=== PATIENT | female | born 1945 | race Caucasian/White ===

== ENCOUNTER → 2017-02-22 | Outpatient (CLI) | payer MEDICARE ==
[2017-02-22 15:27] LABS: ALANINE AMINOTRANSFERASE 33 U/L (9-52); ALBUMIN 4.3 g/dL (3.5-5.0); ALKALINE PHOSPHATASE 80 U/L (38-126); ANION GAP 12 (5-19); ASPARTATE AMINO TRANSFERASE 24 U/L (14-36); BILIRUBIN,DIRECT 0.3 mg/dL (0.0-0.4); BILIRUBIN,TOTAL 0.5 mg/dL (0.2-1.3); BLOOD UREA NITROGEN 16 mg/dL (7-20); CALCIUM 10.8 mg/dL (8.4-10.2); CARBON DIOXIDE 26 mmol/L (22-30); CHLORIDE 106 mmol/L (98-107); CREATININE RESULT 0.82 mg/dL (0.52-1.25); GLUCOSE 85 mg/dL (75-110); POTASSIUM 4.8 mmol/L (3.6-5.0); TOTAL PROTEIN 6.7 g/dL (6.3-8.2)
== END ==
LOC: OD 14:07
PROVIDERS: ATTEND Internal Medicine Medical Oncology
DX: M81.0 Age-related osteoporosis without current pathological fracture (principal)
CPT/HCPCS: 36415; 80053

== ENCOUNTER 2017-06-07 08:37 | Day surgery (SDC) | payer MEDICARE ==
[2017-06-07] MEDS ORDERED: LIDOCAINE 1% INJ-PF (10 MG/ML) 30 ML SDV ONE ×2 (09:10→09:21)
[2017-06-07] MEDS ORDERED: BUPIVACAINE HCL 0.5 % INJ/PF 30 ML SDV ONE (09:21)
[2017-06-07 10:14] LABS: INTERNATIONAL RATION (INR) 0.94; PARTIAL THROMBOPLASTIN TIME 29.8 SEC (23.5-35.8); PROTHROMBIN TIME 13.3 SEC (11.4-15.4)
[2017-06-07] MEDS ORDERED: FENTANYL CITRATE INJ/PF 100 MCG/2 ML AMPUL ONE ×2 (11:41→12:00)
[2017-06-07 15:23] VITALS: BP 118/57
--- NOTE | 2017-06-07 15:48 | RADIOLOGY REPORT (SQ) ---
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 FLUOROSCOPY TIME: 1 minutes 1 second TECHNIQUE: Fluoroscopic guided lumbar myelogram. LIMITATIONS: None. PROCEDURE: After written consent and assessment were obtained, the patient was brought into the fluo roscopy room and placed prone on the table. The patient's lower back was prepped in a sterile fashio n and an entry site was selected under live fluoroscopic guidance. The entry site was anesthetized wi th 4 mL of 1% lidocaine. The spinal needle was advanced through the skin and into the thecal sac at t he right paracentral L2-3 level. Contrast was injected into the thecal sac. Following the procedure the needle was removed and a sterile bandage was placed of the site. At my direction, with continuous physiologic monitoring of the patient by radiology nursing, pain con trol during the procedure was achieved 100 mcg of IV fentanyl in divided doses. No complications pos t IV pain management. CONTRAST: 12 mL Isovue M 200. IMAGES ACQUIRED: Prone, semi-erect, upright PA and oblique images of lumbar spine. Prone cross-table lateral lumbar spine film. Central canal stenosis is present at the L4-5 level with asymmetric leftward lateral impression on th e thecal sac near the takeoff of the right L4 nerve root from the thecal sac. TECHNIQUE: After performing lumbar myelogram, axial images were acquired through the lumbar spine wi thout intravenous contrast. Images reviewed with lung, soft tissue and bone windows. Reconstructed coronal and sagittal MPR images reviewed. All images stored on PACS. All CT scanners at this facility use dose modulation, iterative reconstruction, and/or weight based d osing when appropriate to reduce radiation dose to as low as reasonably achievable (ALARA). [facility]: Dose Right [facility]: CareDose [facility]: Dose Right [facility]: Teradose 4D [facility]: [employer] FINDINGS: SEGMENTATION: Normal. No transitional anatomy. ALIGNMENT: Mild convex leftward lumbar curvature. VERTEBRAL BODIES: Chronic appearing 50% anterior wedge compression of T12, with vertebral body endpla te sclerosis and anterior osteophyte formation. HARDWARE: None in the spine. DISCS: T11-12: Mild diffuse posterior disc bulge and bony spurring is present with moderate right facet hyp ertrophy. These findings combine to cause moderate right foraminal narrowing. No left foraminal kelly rowing. Borderline central canal stenosis. T12-L1: Moderate diffuse posterior disc bulge is present. Mild bilateral facet and ligament hypertr ophy. Mild central canal narrowing. Moderate bilateral foraminal narrowing is present. L1-L2: Mild central canal stenosis results from broad diffuse posterior disc bulging and moderate lakeshia ateral facet and ligament hypertrophy. Moderate bilateral foraminal narrowing is present. L2-L3: Mild central canal stenosis results from broad diffuse posterior disc bulge and moderate bilat eral facet and ligament hypertrophy. No significant foraminal narrowing. L3-L4: Borderline central canal narrowing results from broad diffuse disc bulge and moderate bilatera l facet and ligament hypertrophy. No significant foraminal stenosis. L4-L5: In the left lateral recess, a well-circumscribed low-density soft tissue mass flattens the lef tward thecal sac at the takeoff of the proximal left L4 nerve root. This may represent a facet synov ial cyst emanating off the anterior edge of the left L4-5 facet. There is bony remodeling along the dorsal aspect of the L4 vertebral body on axial image 65. Alternatively, this could be a large extru ded left paracentral disc herniation with superior migration. These changes are best shown on axial image 61-69 and coronal images 25 through 31. The left proximal L5 nerve root is not impinged by thi s. There is high-grade left proximal L4-5 foraminal narrowing. There is moderate central canal stenosis with about 50% narrowing of the thecal sac transversely. No right foraminal stenosis. L5-S1: Advanced bilateral facet arthropathy is present. Minimal posterior disc bulging. No signific ant central or foraminal encroachment. SOFT TISSUES: Anastomotic jerry at the rectosigmoid from partial sigmoid colectomy OTHER: No other significant finding. IMPRESSION: 2 cm soft tissue filling defect in the leftward lateral spinal canal at the L4-5 level. This either represents a large left paracentral disc herniation with superior migration of the extru ded fragment, or represents a large synovial cyst protruding off the superior aspect of the L4-5 face t. In either case, this causes high-grade left foraminal narrowing and impingement on the proximal l eft L4 nerve root as it exits the thecal sac COMMENT: Patient medication list reviewed: Yes- Quality ID# [id number]:Eligible professional attests to doc umenting in the medical record they obtained, updated, or reviewed the patient's current medications. TECHNICAL DOCUMENTATION: JOB ID: [id number] Quality ID # 436: Final reports with documentation of one or more dose reduction techniques (e.g., Au tomated exposure control, adjustment of the mA and/or kV according to patient size, use of iterative reconstruction technique) 2010 [employer]- All Rights Reserved Reading location - IP/workstation name: [email or web address]
--- NOTE | 2017-06-07 15:48 | RADIOLOGY REPORT (SQ) ---
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 FLUOROSCOPY TIME: 1 minutes 1 second TECHNIQUE: Fluoroscopic guided lumbar myelogram. LIMITATIONS: None. PROCEDURE: After written consent and assessment were obtained, the patient was brought into the fluo roscopy room and placed prone on the table. The patient's lower back was prepped in a sterile fashio n and an entry site was selected under live fluoroscopic guidance. The entry site was anesthetized wi th 4 mL of 1% lidocaine. The spinal needle was advanced through the skin and into the thecal sac at t he right paracentral L2-3 level. Contrast was injected into the thecal sac. Following the procedure the needle was removed and a sterile bandage was placed of the site. At my direction, with continuous physiologic monitoring of the patient by radiology nursing, pain con trol during the procedure was achieved 100 mcg of IV fentanyl in divided doses. No complications pos t IV pain management. CONTRAST: 12 mL Isovue M 200. IMAGES ACQUIRED: Prone, semi-erect, upright PA and oblique images of lumbar spine. Prone cross-table lateral lumbar spine film. Central canal stenosis is present at the L4-5 level with asymmetric leftward lateral impression on th e thecal sac near the takeoff of the right L4 nerve root from the thecal sac. TECHNIQUE: After performing lumbar myelogram, axial images were acquired through the lumbar spine wi thout intravenous contrast. Images reviewed with lung, soft tissue and bone windows. Reconstructed coronal and sagittal MPR images reviewed. All images stored on PACS. All CT scanners at this facility use dose modulation, iterative reconstruction, and/or weight based d osing when appropriate to reduce radiation dose to as low as reasonably achievable (ALARA). [facility]: Dose Right [facility]: CareDose [facility]: Dose Right [facility]: Teradose 4D [facility]: [employer] FINDINGS: SEGMENTATION: Normal. No transitional anatomy. ALIGNMENT: Mild convex leftward lumbar curvature. VERTEBRAL BODIES: Chronic appearing 50% anterior wedge compression of T12, with vertebral body endpla te sclerosis and anterior osteophyte formation. HARDWARE: None in the spine. DISCS: T11-12: Mild diffuse posterior disc bulge and bony spurring is present with moderate right facet hyp ertrophy. These findings combine to cause moderate right foraminal narrowing. No left foraminal kelly rowing. Borderline central canal stenosis. T12-L1: Moderate diffuse posterior disc bulge is present. Mild bilateral facet and ligament hypertr ophy. Mild central canal narrowing. Moderate bilateral foraminal narrowing is present. L1-L2: Mild central canal stenosis results from broad diffuse posterior disc bulging and moderate lakeshia ateral facet and ligament hypertrophy. Moderate bilateral foraminal narrowing is present. L2-L3: Mild central canal stenosis results from broad diffuse posterior disc bulge and moderate bilat eral facet and ligament hypertrophy. No significant foraminal narrowing. L3-L4: Borderline central canal narrowing results from broad diffuse disc bulge and moderate bilatera l facet and ligament hypertrophy. No significant foraminal stenosis. L4-L5: In the left lateral recess, a well-circumscribed low-density soft tissue mass flattens the lef tward thecal sac at the takeoff of the proximal left L4 nerve root. This may represent a facet synov ial cyst emanating off the anterior edge of the left L4-5 facet. There is bony remodeling along the dorsal aspect of the L4 vertebral body on axial image 65. Alternatively, this could be a large extru ded left paracentral disc herniation with superior migration. These changes are best shown on axial image 61-69 and coronal images 25 through 31. The left proximal L5 nerve root is not impinged by thi s. There is high-grade left proximal L4-5 foraminal narrowing. There is moderate central canal stenosis with about 50% narrowing of the thecal sac transversely. No right foraminal stenosis. L5-S1: Advanced bilateral facet arthropathy is present. Minimal posterior disc bulging. No signific ant central or foraminal encroachment. SOFT TISSUES: Anastomotic jerry at the rectosigmoid from partial sigmoid colectomy OTHER: No other significant finding. IMPRESSION: 2 cm soft tissue filling defect in the leftward lateral spinal canal at the L4-5 level. This either represents a large left paracentral disc herniation with superior migration of the extru ded fragment, or represents a large synovial cyst protruding off the superior aspect of the L4-5 face t. In either case, this causes high-grade left foraminal narrowing and impingement on the proximal l eft L4 nerve root as it exits the thecal sac COMMENT: Patient medication list reviewed: Yes- Quality ID# [id number]:Eligible professional attests to doc umenting in the medical record they obtained, updated, or reviewed the patient's current medications. TECHNICAL DOCUMENTATION: JOB ID: [id number] Quality ID # 436: Final reports with documentation of one or more dose reduction techniques (e.g., Au tomated exposure control, adjustment of the mA and/or kV according to patient size, use of iterative reconstruction technique) 2010 [employer]- All Rights Reserved Reading location - IP/workstation name: [email or web address]
== END 2017-06-07 15:10 | disposition home or self-care (01) ==
LOC: RAD 08:37
PROVIDERS: ATTEND Family Medicine
DX: M25.552 Pain in left hip (principal); M54.9 Dorsalgia, unspecified; Z79.01 Long term (current) use of anticoagulants; Z79.899 Other long term (current) drug therapy; Z88.5 Allergy status to narcotic agent
CPT/HCPCS: 36415; 82947; 85610; 85730; 72265; 72132; J3010; J3490

== ENCOUNTER 2017-07-03 15:09 | Day surgery (SDC) | payer MEDICARE ==
[2017-07-03] MEDS: MIDAZOLAM 2 MG/2 ML INJ ONE ×2 (16:55→16:59)
--- NOTE | 2017-07-03 17:10 | Operative Report ---
Operative Report DATE OF SURGERY: 07/03/17 Operative Report: Pre-op diagnosis: Dysphagia Post-op diagnosis: Antral gastritis Surgery: Esophagogastroduodenoscopy with biopsy Medications: Versed 3mg Fentanyl 100 mcg IV push Tissue removed: Antral biopsy for pathology Procedure: After informed consent obtained from patient, the throat was sprayed with Hurricane and conscious sedation was achieved. The upper endoscope was inserted into the esophagus under direct vision and advanced into the stomach. The duodenum was entered and examined to the second part. Endoscope was then slowly pulled out of the patient as the mucosa was examined into details. Patient tolerated procedure well. Findings Esophagus: Normal Z-line at: 34 cm Antrum: Mild erythema Body: Normal Fundus: 6 cm hiatal hernia with the top of the gastric fold at 40 cm Duodenum first part: Normal Duodenum second part: Normal Plan: Await pathology. Continue PPI OPERATION: .
[2017-07-03] MEDS ORDERED: EPINEPHRINE INJ 1 MG/10 ML DISP.SYRIN ONE (17:16)
[2017-07-03] MEDS ORDERED: NALOXONE HCL INJ/PF 0.4 MG/1 ML SDV ONE (17:16)
[2017-07-03] MEDS ORDERED: GLUCAGON,HUMAN RECOMB 1 MG INJ ONE (17:16)
[2017-07-03] MEDS ORDERED: FENTANYL CITRATE INJ/PF 100 MCG/2 ML AMPUL ONE (17:16)
[2017-07-03] MEDS ORDERED: FLUMAZENIL INJ 0.5 MG/5 ML VIAL ONE (17:16)
[2017-07-03 18:12] VITALS: BP 143/61
== END 2017-07-03 18:15 | disposition home or self-care (01) ==
LOC: END 15:09
PROVIDERS: ATTEND Internal Medicine Gastroenterology
PROC: 0DB68ZX Excision of Stomach, Via Natural or Artificial Opening Endoscopic, Diagnostic (ICD-10-PCS; principal; 2017-07-03 15:30)
DX: K29.50 Unspecified chronic gastritis without bleeding (principal); K44.9 Diaphragmatic hernia without obstruction or gangrene; E11.9 Type 2 diabetes mellitus without complications; K21.9 Gastro-esophageal reflux disease without esophagitis; M19.90 Unspecified osteoarthritis, unspecified site; E78.00 Pure hypercholesterolemia, unspecified; I11.0 Hypertensive heart disease with heart failure; I50.9 Heart failure, unspecified; Z96.651 Presence of right artificial knee joint; K58.9 Irritable bowel syndrome, unspecified; Z87.11 Personal history of peptic ulcer disease; Z85.3 Personal history of malignant neoplasm of breast; Z86.718 Personal history of other venous thrombosis and embolism; Z85.820 Personal history of malignant melanoma of skin; Z95.810 Presence of automatic (implantable) cardiac defibrillator; Z88.5 Allergy status to narcotic agent; Z79.899 Other long term (current) drug therapy; Z79.84 Long term (current) use of oral hypoglycemic drugs; Z79.51 Long term (current) use of inhaled steroids; Z79.82 Long term (current) use of aspirin
CPT/HCPCS: 43239; 82962; 88342 ×2; 88305 ×2; J2250; J3010; J0171; J1610; J2310; J3490

== ENCOUNTER → 2017-08-21 | Outpatient (CLI) | payer MEDICARE ==
--- NOTE | 2017-08-21 14:55 | RADIOLOGY REPORT (SQ) ---
EXAM DESCRIPTION: U/S EXTREMITY NONVASCULAR LTD COMPLETED DATE/TIME: 08/21/2017 2:29 pm REASON FOR STUDY: R22.32 LOCALIZED SWELLING, MASS AND LUMP, LEFT UPPER LIMB R22.32 LOCALIZED SWELLI NG, MASS AND LUMP, LEFT UPPER LIMB COMPARISON: None. TECHNIQUE: Dynamic and static grayscale images acquired of the localized site of clinical concern an d recorded on PACS. Additional selected color Doppler and spectral images recorded. SITE OF CONCERN: Left forearm. LIMITATIONS: None. FINDINGS: SKIN AND SUBCUTANEOUS TISSUES: No masses. No fluid collections. No edema. No foreign vero s. DEEP SOFT TISSUES/MUSCLES: No masses. No fluid collections. No edema. OTHER: No other significant finding. IMPRESSION: NO SOFT TISSUE MASS, FLUID COLLECTION, OR FOREIGN BODY. TECHNICAL DOCUMENTATION: JOB ID: [id number] [employer]- All Rights Reserved Reading location - IP/workstation name: [email or web address]
== END ==
LOC: RAD 13:35
PROVIDERS: ATTEND Orthopaedic Surgery
DX: R22.32 Localized swelling, mass and lump, left upper limb (principal)
CPT/HCPCS: 76882

== ENCOUNTER → 2017-08-21 | Outpatient (CLI) | payer MEDICARE ==
[2017-08-21 15:33] LABS: ABSOLUTE BASOPHILS # (AUTO) 0.1 10^3/uL (0.0-0.2); ABSOLUTE EOSINOPHILS # (AUTO) 0.1 10^3/uL (0.0-0.6); ABSOLUTE LYMPHOCYTES (AUTO) 1.4 10^3/uL (0.5-4.7); ABSOLUTE MONOCYTES (AUTO) 0.3 10^3/uL (0.1-1.4); ABSOLUTE NEUT (AUTO) 4.4 10^3/uL (1.7-8.2); EOSINOPHILS % (AUTO) 1.4 % (0-6); HEMATOCRIT 38.7 % (36.0-47.0); HEMOGLOBIN 12.7 g/dL (12.0-15.5); LYMPHOCYTES % (AUTO) 22.6 % (13-45); MEAN CORPUSCULAR HEMOGLOBIN 29.9 pg (27.0-33.4); MEAN CORPUSCULAR HGB CONC 32.8 g/dL (32.0-36.0); MEAN CORPUSCULAR VOLUME 91 fl (80-97); MONOCYTES % (AUTO) 5.2 % (3-13); PLATELET COUNT 229 10^3/uL (150-450); RED BLOOD COUNT 4.25 10^6/uL (3.72-5.28); RED CELL DISTRIBUTION WIDTH 16.3 % (11.5-14.0); SEGMENTED NEUTROPHILS % (AUTO) 69.8 % (42-78); TOTAL CELLS COUNTED % (AUTO) 100 %; WHITE BLOOD COUNT 6.3 10^3/uL (4.0-10.5)
[2017-08-21 15:56] LABS: ALANINE AMINOTRANSFERASE 32 U/L (9-52); ALBUMIN 3.9 g/dL (3.5-5.0); ALKALINE PHOSPHATASE 65 U/L (38-126); ANION GAP 8 (5-19); ASPARTATE AMINO TRANSFERASE 25 U/L (14-36); BILIRUBIN,DIRECT 0.2 mg/dL (0.0-0.4); BILIRUBIN,TOTAL 0.2 mg/dL (0.2-1.3); BLOOD UREA NITROGEN 23 mg/dL (7-20); CALCIUM 11.2 mg/dL (8.4-10.2); CARBON DIOXIDE 29 mmol/L (22-30); CHLORIDE 107 mmol/L (98-107); GLUCOSE 115 mg/dL (75-110); POTASSIUM 4.4 mmol/L (3.6-5.0); TOTAL PROTEIN 6.3 g/dL (6.3-8.2)
[2017-08-21 16:26] LABS: CARCINOEMBRYONIC ANTIGEN 1.5 ng/mL (<3.0)
== END ==
LOC: OD 14:23
PROVIDERS: ATTEND Internal Medicine Medical Oncology
DX: C50.812 Malignant neoplasm of overlapping sites of left female breast (principal)
CPT/HCPCS: 36415; 80053; 82378; 85025; 86300

== ENCOUNTER → 2018-02-20 | Outpatient (CLI) | payer MEDICARE ==
[2018-02-20 17:57] LABS: ABSOLUTE LYMPHOCYTES (AUTO) 1.3 10^3/uL (0.5-4.7); ABSOLUTE MONOCYTES (AUTO) 0.4 10^3/uL (0.1-1.4); ABSOLUTE NEUT (AUTO) 5.6 10^3/uL (1.7-8.2); BASOPHILS % (AUTO) 0.7 % (0-2); EOSINOPHILS % (AUTO) 0.5 % (0-6); HEMATOCRIT 37.9 % (36.0-47.0); HEMOGLOBIN 12.4 g/dL (12.0-15.5); LYMPHOCYTES % (AUTO) 17.9 % (13-45); MEAN CORPUSCULAR HEMOGLOBIN 29.8 pg (27.0-33.4); MEAN CORPUSCULAR HGB CONC 32.8 g/dL (32.0-36.0); MEAN CORPUSCULAR VOLUME 91 fl (80-97); PLATELET COUNT 255 10^3/uL (150-450); RED BLOOD COUNT 4.17 10^6/uL (3.72-5.28); RED CELL DISTRIBUTION WIDTH 20.1 % (11.5-14.0); SEGMENTED NEUTROPHILS % (AUTO) 74.9 % (42-78); TOTAL CELLS COUNTED % (AUTO) 100 %; WHITE BLOOD COUNT 7.4 10^3/uL (4.0-10.5)
[2018-02-20 18:16] LABS: ALANINE AMINOTRANSFERASE 28 U/L (9-52); ALBUMIN 4.3 g/dL (3.5-5.0); ALKALINE PHOSPHATASE 85 U/L (38-126); ANION GAP 12 (5-19); ASPARTATE AMINO TRANSFERASE 19 U/L (14-36); BILIRUBIN,DIRECT 0.2 mg/dL (0.0-0.4); BILIRUBIN,TOTAL 0.2 mg/dL (0.2-1.3); BLOOD UREA NITROGEN 24 mg/dL (7-20); CALCIUM 11.4 mg/dL (8.4-10.2); CARBON DIOXIDE 26 mmol/L (22-30); CHLORIDE 104 mmol/L (98-107); GLUCOSE 133 mg/dL (75-110); POTASSIUM 4.4 mmol/L (3.6-5.0); SODIUM 142.3 mmol/L (137-145); TOTAL PROTEIN 6.8 g/dL (6.3-8.2)
[2018-02-20 18:43] LABS: CARCINOEMBRYONIC ANTIGEN 1.4 ng/mL (<3.0)
== END ==
LOC: OD 17:12
PROVIDERS: ATTEND Internal Medicine Medical Oncology
DX: C50.812 Malignant neoplasm of overlapping sites of left female breast (principal)
CPT/HCPCS: 36415; 80053; 82378; 85025; 86300

== ENCOUNTER 2018-03-20 13:55 | Outpatient (CLI) | payer MEDICARE ==
[~2018-03-20 13:55] MED LIST: NORMAL SALINE 250 ML IV PRN; ZOLEDRONIC ACID 5 MG/100 ML RTU IV PRN
[2018-03-20 14:24] VITALS: BP 79/47
== END 2018-03-20 16:03 | disposition home or self-care (01) ==
LOC: II 13:55 → 5TH 14:50 → II 16:03
PROVIDERS: ATTEND Internal Medicine Medical Oncology
PROC: 3E033GC Introduction of Other Therapeutic Substance into Peripheral Vein, Percutaneous Approach (ICD-10-PCS; principal; 2018-03-20)
DX: C50.812 Malignant neoplasm of overlapping sites of left female breast (principal)
CPT/HCPCS: 96365; J3489; 96367

== ENCOUNTER 2018-04-16 16:00 | Day surgery (SDC) | payer MEDICARE ==
[~2018-04-16 16:00] MED LIST changes: +DIPHENHYDRAMINE HCL 50 MG/ML VIAL ONE; +EPINEPHRINE INJ 1 MG/10 ML DISP.SYRIN ONE; +FLUMAZENIL INJ 0.5 MG/5 ML VIAL ONE; +GLUCAGON,HUMAN RECOMB 1 MG INJ ONE; +NALOXONE HCL INJ/PF 0.4 MG/1 ML SDV ONE; -NORMAL SALINE 250 ML IV PRN; +ONDANSETRON HCL INJ/PF 4 MG/2 ML SDV ONE; -ZOLEDRONIC ACID 5 MG/100 ML RTU IV PRN
[2018-04-16] MEDS: FENTANYL CITRATE INJ/PF 100 MCG/2 ML AMPUL ONE ×2 (16:33→16:38)
[2018-04-16] MEDS: MIDAZOLAM 2 MG/2 ML INJ ONE ×2 (16:35→16:40)
--- NOTE | 2018-04-16 17:04 | Operative Report ---
Operative Report DATE OF SURGERY: 04/16/18 Operative Report: Pre-op diagnosis: Rectal bleeding and anemia Post-op diagnosis: 1. Pancolonic diverticulosis 2. Internal hemorrhoids Surgery: Colonoscopy Medications: Versed 3mg, Fentanyl 100mcg IV push Tissue removed: None Procedure: After informed consent obtained from patient, conscious sedation was achieved. A digital rectal examination was performed and this was unremarkable. The colonoscope was inserted into the rectum and advanced to the cecum. The a ppendiceal orifice and the terminal ileum were both identified. The mucosa was examined into details as the colonoscope was slowly pulled out of the patient. The endoscope was retroflexed in the rectum. Patient tolerated the procedure well. Findings Cecum: Normal Ascending colon: Few diverticuli Transverse colon: Few diverticuli Descending colon: Moderate diverticuli Sigmoid colon: Multiple [place] diverticuli Rectum: Normal except for large internal hemorrhoids Plan: Fiber supplements every day OPERATION: .
[2018-04-16 18:08] VITALS: BP 96/52
== END 2018-04-16 18:00 | disposition home or self-care (01) ==
LOC: END 16:00
PROVIDERS: ATTEND Internal Medicine Gastroenterology
DX: K57.30 Diverticulosis of large intestine without perforation or abscess without bleeding (principal); K64.8 Other hemorrhoids; K62.5 Hemorrhage of anus and rectum; Z86.010 Personal history of colon polyps; D50.0 Iron deficiency anemia secondary to blood loss (chronic); K44.9 Diaphragmatic hernia without obstruction or gangrene; E11.9 Type 2 diabetes mellitus without complications; E78.00 Pure hypercholesterolemia, unspecified; K58.9 Irritable bowel syndrome, unspecified; M19.90 Unspecified osteoarthritis, unspecified site; I11.0 Hypertensive heart disease with heart failure; I50.9 Heart failure, unspecified; Z85.3 Personal history of malignant neoplasm of breast; Z86.718 Personal history of other venous thrombosis and embolism; Z87.11 Personal history of peptic ulcer disease; Z79.82 Long term (current) use of aspirin; Z79.899 Other long term (current) drug therapy; Z79.84 Long term (current) use of oral hypoglycemic drugs; Z85.820 Personal history of malignant melanoma of skin; Z95.810 Presence of automatic (implantable) cardiac defibrillator; Z96.651 Presence of right artificial knee joint
CPT/HCPCS: 45378; 82962; J2250; J3010; J0171; J1200; J1610; J2310; J2405; J3490

== ENCOUNTER → 2018-05-30 | Outpatient (CLI) | payer MEDICARE ==
--- NOTE | 2018-05-30 15:09 | RADIOLOGY REPORT (SQ) ---
EXAM DESCRIPTION: CT FACIAL AREA WITHOUT COMPLETED DATE/TIME: 05/30/2018 1:43 pm REASON FOR STUDY: J32.9 CHRONIC SINUSITIS, UNSPECIFIED J32.9 CHRONIC SINUSITIS, UNSPECIFIED COMPARISON: None. TECHNIQUE: Noncontrasted images through the facial bones and orbits windowed for bone and soft tissu e. Additional coronal and sagittal reconstructed images reviewed. All images stored on PACS. All CT scanners at this facility use dose modulation, iterative reconstruction, and/or weight based d osing when appropriate to reduce radiation dose to as low as reasonably achievable (ALARA). [facility]: Dose Right [facility]: CareDose [facility]: Dose Right [facility]: Teradose 4D [facility]: [employer] RADIATION DOSE: mGy. LIMITATIONS: None. FINDINGS: FACIAL BONES: No fracture or bone lesion. ORBITS: Intact. No fracture. Symmetric intact globes and retroorbital soft tissues. PARANASAL SINUSES: There is some mucoperiosteal thickening in the left sphenoid sinus. There is mini mal fluid in the right maxillary sinus. No nasal polyps. Maxillary sinus outlets are patent. SOFT TISSUES: No mass or edema. INFERIOR BRAIN: Limited view. No acute findings. OTHER: No other significant finding. IMPRESSION: Mild sinus disease as described. TECHNICAL DOCUMENTATION: JOB ID: [id number] Quality ID # 436: Final reports with documentation of one or more dose reduction techniques (e.g., Au tomated exposure control, adjustment of the mA and/or kV according to patient size, use of iterative reconstruction technique) 2010 [employer]- All Rights Reserved Reading location - IP/workstation name: [email or web address]
== END ==
LOC: RAD 13:02
PROVIDERS: ATTEND Family Medicine
DX: J32.9 Chronic sinusitis, unspecified (principal)
CPT/HCPCS: 70486

== ENCOUNTER → 2018-07-03 | Outpatient (CLI) | payer MEDICARE ==
--- NOTE | 2018-07-04 08:53 | RADIOLOGY REPORT (SQ) ---
EXAM DESCRIPTION: CT SINUSES FOR ENT COMPLETED DATE/TIME: 07/03/2018 3:17 pm REASON FOR STUDY: J32.9 CHRONIC SINUSITIS, UNSPECIFIED J32.9 CHRONIC SINUSITIS, UNSPECIFIED COMPARISON: None. TECHNIQUE: Noncontrast scanning through the paranasal sinuses using bone algorithm. Reconstructed MPR images reviewed. All images stored on PACS. Images acquired for image guided surgery. All CT scanners at this facility use dose modulation, iterative reconstruction, and/or weight based d osing when appropriate to reduce radiation dose to as low as reasonably achievable (ALARA). [facility]: Dose Right [facility]: CareDose [facility]: Dose Right [facility]: Teradose 4D [facility]: [employer] RADIATION DOSE: 47 mGy. FINDINGS: NASAL PASSAGES: Clear. No polyps or masses. OSTEOMEATAL UNITS AND NASOFRONTAL DUCTS: Left is Patent. Right is opacified by mucous membrane thic kening. Small bilateral agger nasi or Iván cells. MAXILLARY SINUSES: Left is well-pneumatized and clear. On the right side, the maxillary sinus has m ucous membrane thickening and dependent fluid, with opacification of the right maxillary outlet by mu cous membrane thickening. ETHMOID SINUSES: Well pneumatized. Fluid and mucous membrane thickening in the anterior right ethmoi d air cells. SPHENOID SINUSES: Well pneumatized. The right sphenoid sinus is clear. On the left, circumferential mucous membrane thickening is present with a small amount of dependently layering fluid. No sphenoet hmoid air cells or pneumatized pterygoid recess. No pneumatized dorsal sella. FRONTAL SINUSES: Well-pneumatized and clear. MASTOID AIR CELLS: Clear. ORBITS: Normal and symmetrical. NASAL SEPTUM: Midline. No nasal septal spurs. TEMPOROMANDIBULAR JOINTS: Normal. TURBINATES: No pneumatized turbinates. MUCOPERIOSTEAL THICKENING: No. MUCOCELE: No. OTHER: No other significant findings. IMPRESSION: Acute sinusitis in the right maxillary and anterior ethmoid air cells. Acute sinusitis in the left sphenoid sinus TECHNICAL DOCUMENTATION: JOB ID: [id number] Quality ID # 436: Final reports with documentation of one or more dose reduction techniques (e.g., Au tomated exposure control, adjustment of the mA and/or kV according to patient size, use of iterative reconstruction technique) 2010 [employer]- All Rights Reserved Reading location - IP/workstation name: [email or web address]
== END ==
LOC: RAD 15:19
PROVIDERS: ATTEND Otolaryngology
DX: J32.9 Chronic sinusitis, unspecified (principal)
CPT/HCPCS: 70486

== ENCOUNTER → 2018-08-08 | Outpatient (CLI) | payer MEDICARE ==
--- NOTE | 2018-08-08 14:40 | WOMENS IMAGING REPORT ---
EXAM DESCRIPTION: BONE DENSITY HIP/SPINE COMPLETED DATE/TIME: 08/08/2018 1:39 pm REASON FOR STUDY: M81.0 AGE RELATED OSTEOPOROSIS WITHOUT CURRENT PATHOLOGICAL FRACTURE M81.0 AGE-RE LATED OSTEOPOROSIS W/O CURRENT PATHOLOGICAL FRAC COMPARISON: 2013 TECHNIQUE: Dual-Energy X-ray Absorptiometry (DEXA) of the AP Spine. LIMITATIONS: None. FINDINGS: LUMBAR SPINE: The bone mineral density (BMD) measured from L1-L4 in the AP projection correlates with a T-score of -1.6, previously -1.4, which is osteopenia as defined by the World Health Organization. IMPRESSION: 1. LUMBAR SPINE: OSTEOPENIA. COMMENT: The World Health Organization defines low BMD as follows: T-score: Normal: Greater than -1.0 Osteopenia: Between -1.0 and -2.5 Osteoporosis: Less than -2.5 without fractures Established osteoporosis: Less than -2.5 with fractures In general, you may wish to consider: Diagnosis Treatment Follow-up DEXA Normal BMD Prevention 2-3 years Osteopenia Prevention/Therapy 1-2 years Osteoporosis Therapy Yearly TECHNICAL DOCUMENTATION: JOB ID: [id number] [employer]- All Rights Reserved Reading location - IP/workstation name: [email or web address]
== END ==
LOC: WI 13:02
PROVIDERS: ATTEND Internal Medicine Medical Oncology
DX: M81.0 Age-related osteoporosis without current pathological fracture (principal)
CPT/HCPCS: 77080

== ENCOUNTER → 2018-08-19 | Outpatient (CLI) | payer MEDICARE ==
[2018-08-19 14:50] LABS: ABSOLUTE BASOPHILS # (AUTO) 0.1 10^3/uL (0.0-0.2); ABSOLUTE EOSINOPHILS # (AUTO) 0.1 10^3/uL (0.0-0.6); ABSOLUTE LYMPHOCYTES (AUTO) 1.3 10^3/uL (0.5-4.7); ABSOLUTE MONOCYTES (AUTO) 0.5 10^3/uL (0.1-1.4); ABSOLUTE NEUT (AUTO) 5.3 10^3/uL (1.7-8.2); BASOPHILS % (AUTO) 0.9 % (0-2); EOSINOPHILS % (AUTO) 1.7 % (0-6); HEMATOCRIT 40.8 % (36.0-47.0); HEMOGLOBIN 13.7 g/dL (12.0-15.5); LYMPHOCYTES % (AUTO) 18.1 % (13-45); MEAN CORPUSCULAR HGB CONC 33.7 g/dL (32.0-36.0); MEAN CORPUSCULAR VOLUME 95 fl (80-97); MONOCYTES % (AUTO) 6.5 % (3-13); PLATELET COUNT 200 10^3/uL (150-450); RED BLOOD COUNT 4.29 10^6/uL (3.72-5.28); RED CELL DISTRIBUTION WIDTH 13.8 % (11.5-14.0); SEGMENTED NEUTROPHILS % (AUTO) 72.8 % (42-78); TOTAL CELLS COUNTED % (AUTO) 100 %; WHITE BLOOD COUNT 7.3 10^3/uL (4.0-10.5)
[2018-08-19 15:15] LABS: ALANINE AMINOTRANSFERASE 21 U/L (9-52); ALKALINE PHOSPHATASE 99 U/L (38-126); ANION GAP 10 (5-19); ASPARTATE AMINO TRANSFERASE 19 U/L (14-36); BILIRUBIN,DIRECT 0.2 mg/dL (0.0-0.4); BILIRUBIN,TOTAL 0.2 mg/dL (0.2-1.3); BLOOD UREA NITROGEN 15 mg/dL (7-20); CALCIUM 10.7 mg/dL (8.4-10.2); CARBON DIOXIDE 25 mmol/L (22-30); CHLORIDE 109 mmol/L (98-107); GLUCOSE 95 mg/dL (75-110); POTASSIUM 4.2 mmol/L (3.6-5.0); SODIUM 143.6 mmol/L (137-145); TOTAL PROTEIN 6.3 g/dL (6.3-8.2)
[2018-08-19 15:56] LABS: CARCINOEMBRYONIC ANTIGEN 1.6 ng/mL (<3.0)
== END ==
LOC: OD 14:21
PROVIDERS: ATTEND Internal Medicine Medical Oncology
DX: Z85.3 Personal history of malignant neoplasm of breast (principal)
CPT/HCPCS: 36415; 80053; 82378; 85025; 86300

== ENCOUNTER 2019-01-21 16:33 | Observation (INO) | payer MEDICARE ==
--- NOTE | 2019-01-21 16:50 | ER Document Report ---
ED General - General Chief Complaint: Altered Mental Status Stated Complaint: ALTERED MENTAL STATUS Time Seen by Provider: 01/21/19 16:50 Primary Care Provider: LUIS HEATON MD [Primary Care Provider] - Follow up as needed Mode of Arrival: Medic TRAVEL OUTSIDE OF THE [place] IN LAST 30 DAYS: No - HPI Notes: Per EMR last medications filled in our chart were 1031-19: Linzess 72, Xarelto 10, in Entresto 24, metronidazole cream, celecoxib, montelukast, gabapentin 100, other home medications listed include tramadol Effexor, Topamax, spironolactone, ranitidine, MiraLAX - Related Data Allergies/Adverse Reactions: sumatriptan Adverse Reaction (Severe, Verified 01/21/19 16:35) VERY LOW BP tizanidine [From Zanaflex] Adverse Reaction (Intermediate, Verified 01/21/19 16:35) LOW BP oxycodone HCl [From Percocet] Adverse Reaction (Verified 01/21/19 16:35) Nausea silk tape Adverse Reaction (Intermediate, Uncoded 01/21/19 16:35) Blisters surgical glue Adverse Reaction (Mild, Uncoded 01/21/19 16:35) rash, itching Past Medical History - Social History Smoking Status: Never Smoker Patient has suicidal ideation: No Patient has homicidal ideation: No - Past Medical History Cardiac Medical History: Reports: Hx Coronary Artery Disease Denies: Hx Heart Attack, Hx Hypertension Pulmonary Medical History: Reports: Hx Bronchitis, Hx Pneumonia - WALKING Denies: Hx Asthma, Hx COPD Neurological Medical History: Denies: Hx Cerebrovascular Accident, Hx Seizures GI Medical History: Reports: Hx Hiatal Hernia, Hx Ulcer. Denies: Hx Hepatitis Musculoskeletal Medical History: Denies Hx Arthritis Infectious Medical History: Denies: Hx Hepatitis Past Surgical History: Reports: Hx Hysterectomy, Hx Mastectomy - right, Hx Pacemaker. Denies: Hx Open Heart Surgery - Immunizations Hx Diphtheria, Pertussis, Tetanus Vaccination: Yes Hx Pneumococcal Vaccination: 01/17/14 Physical Exam - Vital signs Vitals: Temp Pulse Resp BP Pulse Ox 97.9 F 90 18 121/77 95 01/21/19 16:48 01/21/19 16:48 01/21/19 16:48 01/21/19 16:48 01/21/19 16:48 Course - Vital Signs Vital signs: Temp Pulse Resp BP Pulse Ox 97.9 F 90 16 92/75 L 95 01/21/19 16:48 01/21/19 16:48 01/21/19 19:00 01/21/19 18:31 01/21/19 16:48 - Laboratory Result Diagrams: 01/21/19 16:53 01/21/19 16:53 Laboratory results interpreted by me: 01/21/19 01/21/19 01/21/19 16:53 16:53 17:55 RDW 15.2 H Glucose 203 H Calcium 11.3 H Urine Blood SMALL H Urine Nitrite POSITIVE H Ur Leukocyte Esterase SMALL H Discharge - Discharge Clinical Impression: Delirium, Hypercalcemia Condition: Fair Disposition: ADMITTED INPATIENT Admitting Provider: Hugh (Hospitalist) Unit Admitted: Medical Floor Referrals: LUIS HEATON MD [Primary Care Provider] - Follow up as needed
[2019-01-21 17:07] LABS: ABSOLUTE LYMPHOCYTES (AUTO) 1.1 10^3/uL (0.5-4.7); ABSOLUTE MONOCYTES (AUTO) 0.5 10^3/uL (0.1-1.4); ABSOLUTE NEUT (AUTO) 5.5 10^3/uL (1.7-8.2); BASOPHILS % (AUTO) 0.4 % (0-2); EOSINOPHILS % (AUTO) 0.3 % (0-6); HEMATOCRIT 42.4 % (36.0-47.0); HEMOGLOBIN 14.4 g/dL (12.0-15.5); LYMPHOCYTES % (AUTO) 15.7 % (13-45); MEAN CORPUSCULAR HEMOGLOBIN 32.1 pg (27.0-33.4); MEAN CORPUSCULAR VOLUME 94 fl (80-97); MONOCYTES % (AUTO) 6.6 % (3-13); PLATELET COUNT 201 10^3/uL (150-450); RED CELL DISTRIBUTION WIDTH 15.2 % (11.5-14.0); TOTAL CELLS COUNTED % (AUTO) 100 %; WHITE BLOOD COUNT 7.1 10^3/uL (4.0-10.5)
[2019-01-21 17:26] LABS: ALKALINE PHOSPHATASE 52 U/L (38-126); ANION GAP 10 (5-19); ASPARTATE AMINO TRANSFERASE 21 U/L (14-36); BILIRUBIN,TOTAL 0.5 mg/dL (0.2-1.3); BLOOD UREA NITROGEN 19 mg/dL (7-20); CALCIUM 11.3 mg/dL (8.4-10.2); CARBON DIOXIDE 25 mmol/L (22-30); CHLORIDE 105 mmol/L (98-107); GLUCOSE 203 mg/dL (75-110); POTASSIUM 4.3 mmol/L (3.6-5.0); TOTAL PROTEIN 6.5 g/dL (6.3-8.2)
--- NOTE | 2019-01-21 17:29 | RADIOLOGY REPORT (SQ) ---
EXAM DESCRIPTION: CT HEAD WITHOUT COMPLETED DATE/TIME: 01/21/2019 5:17 pm REASON FOR STUDY: altered mental status COMPARISON: None. TECHNIQUE: Axial images acquired through the brain without intravenous contrast. Images reviewed wi th bone, brain and subdural windows. Additional sagittal and coronal reconstructions were generated. Images stored on PACS. All CT scanners at this facility use dose modulation, iterative reconstruction, and/or weight based d osing when appropriate to reduce radiation dose to as low as reasonably achievable (ALARA). [facility]: Dose Right [facility]: CareDose [facility]: Dose Right [facility]: Teradose 4D [facility]: [employer] RADIATION DOSE: CT Rad equipment meets quality standard of care and radiation dose reduction techniq ues were employed. CTDIvol: 53.2 mGy. DLP: 1097 mGy-cm. mGy. LIMITATIONS: None. FINDINGS: VENTRICLES: Normal size and contour. CEREBRUM: No masses. No hemorrhage. No midline shift. No evidence for acute infarction. Normal gra y/white matter differentiation. No areas of low density in the white matter. CEREBELLUM: No masses. No hemorrhage. No alteration of density. No evidence for acute infarction. EXTRAAXIAL SPACES: No fluid collections. No masses. ORBITS AND GLOBE: No intra- or extraconal masses. Normal contour of globe without masses. CALVARIUM: No fracture. PARANASAL SINUSES: Opacified left sphenoid sinus. SOFT TISSUES: No mass or hematoma. OTHER: No other significant finding. IMPRESSION: NORMAL BRAIN CT WITHOUT CONTRAST. EVIDENCE OF ACUTE STROKE: NO. COMMENT: Quality ID # 436: Final reports with documentation of one or more dose reduction techniques (e.g., Automated exposure control, adjustment of the mA and/or kV according to patient size, use of iterative reconstruction technique) TECHNICAL DOCUMENTATION: JOB ID: [id number] [employer]- All Rights Reserved Reading location - IP/workstation name: [email or web address]
--- NOTE | 2019-01-21 17:33 | RADIOLOGY REPORT (SQ) ---
EXAM DESCRIPTION: CHEST SINGLE VIEW COMPLETED DATE/TIME: 01/21/2019 5:23 pm REASON FOR STUDY: altered mental status COMPARISON: None. EXAM PARAMETERS: NUMBER OF VIEWS: One view. TECHNIQUE: Single frontal radiographic view of the chest acquired. RADIATION DOSE: NA LIMITATIONS: None. FINDINGS: LUNGS AND PLEURA: No opacities, masses or pneumothorax. No pleural effusion. MEDIASTINUM AND HILAR STRUCTURES: Prominent hiatal hernia. HEART AND VASCULAR STRUCTURES: Heart normal in size. Normal vasculature. BONES: No acute findings. HARDWARE: Pacemaker/defibrillator. Surgical clips in the right axilla. OTHER: No other significant finding. IMPRESSION: Hiatal hernia. No acute cardiopulmonary finding. TECHNICAL DOCUMENTATION: JOB ID: [id number] [email or web address]- All Rights Reserved Reading location - IP/workstation name: [email or web address]
[2019-01-21 18:24] LABS: APPEARANCE,URINE SLIGHTLY-CLOUDY; BILIRUBIN,URINE NEGATIVE (NEGATIVE); COLOR,URINE YELLOW; GLUCOSE, URINE NEGATIVE (NEGATIVE); KETONES,URINE NEGATIVE (NEGATIVE); LEUKOCYTE ESTERASE,URINE SMALL (NEGATIVE); NITRITE,URINE POSITIVE (NEGATIVE); PROTEIN,URINE NEGATIVE (NEGATIVE); URINE SPECIFIC GRAVITY 1.005; UROBILINOGEN,URINE NEGATIVE mg/dL (<2.0)
[2019-01-21 18:35] LABS: URINE AMPHETAMINES SCREEN NEGATIVE; URINE BARBITURATES SCREEN NEGATIVE; URINE BENZODIAZEPINES SCREEN NEGATIVE; URINE COCAINE SCREEN NEGATIVE; URINE MARIJUANA (THC) SCREEN NEGATIVE; URINE METHADONE SCREEN NEGATIVE; URINE PHENCYCLIDINE SCREEN NEGATIVE
[2019-01-21] MEDS ORDERED: RINGERS SOLUTION,LACTATED 1,000 ML IV ONE (18:36)
[2019-01-21] MEDS ORDERED: GLUCAGON,HUMAN RECOMB 1 MG INJ IM PRN (19:53)
[2019-01-21] MEDS ORDERED: DEXTROSE 40% GEL 15 GM TUBE PO PRN ×2 (19:53)
[2019-01-21] MEDS ORDERED: IPRATROPIUM/ALBUTEROL 0.5-2.5 MG/3 ML AMPUL NEB PRN (19:53)
[2019-01-21] MEDS ORDERED: DEXTROSE 50%-WATER 25 GM/50 ML DISP.SYRIN IV PRN ×2 (19:53)
[2019-01-21] MEDS ORDERED: MAG HYDROX/AL HYDROX/SIMETH SUSP 30 ML UDCUP PO PRN (19:53)
[2019-01-21] MEDS ORDERED: HYDRALAZINE HCL INJ/PF 20 MG/1 ML SDV IV PRN (19:56)
[2019-01-21] MEDS ORDERED: NORMAL SALINE 1000 ML 1,000 ML IV SCH (20:00)
[2019-01-21] MEDS ORDERED: CEFTRIAXONE 1 GM/D5W RTU 1 GM/50 ML RTUPB IV ONE (20:06)
[2019-01-21] MEDS ORDERED: MAGNESIUM HYDROXIDE SUSP 30 ML UDCUP PO PRN (22:25)
[2019-01-21] MEDS: ACETAMINOPHEN 325 MG TABLET PO PRN (22:34)
[2019-01-21] MEDS: HEPARIN SOD (PORCINE) 5,000 UNIT/ML 1 ML VIAL SUBCUT SCH (22:35)
[2019-01-22 03:41] LABS: ABSOLUTE LYMPHOCYTES (AUTO) 1.3 10^3/uL (0.5-4.7); ABSOLUTE MONOCYTES (AUTO) 0.6 10^3/uL (0.1-1.4); BASOPHILS % (AUTO) 0.6 % (0-2); EOSINOPHILS % (AUTO) 0.4 % (0-6); HEMOGLOBIN 13.4 g/dL (12.0-15.5); LYMPHOCYTES % (AUTO) 18.7 % (13-45); MEAN CORPUSCULAR HEMOGLOBIN 31.9 pg (27.0-33.4); MEAN CORPUSCULAR HGB CONC 33.6 g/dL (32.0-36.0); MEAN CORPUSCULAR VOLUME 95 fl (80-97); PLATELET COUNT 188 10^3/uL (150-450); RED BLOOD COUNT 4.22 10^6/uL (3.72-5.28); RED CELL DISTRIBUTION WIDTH 14.9 % (11.5-14.0); SEGMENTED NEUTROPHILS % (AUTO) 72.3 % (42-78); TOTAL CELLS COUNTED % (AUTO) 100 %
[2019-01-22] MEDS ORDERED: FUROSEMIDE INJ/PF 40 MG/4 ML SDV IV ONE ×2 (03:45→17:00)
[2019-01-22 03:57] LABS: ANION GAP 10 (5-19); BLOOD UREA NITROGEN 14 mg/dL (7-20); CALCIUM 10.9 mg/dL (8.4-10.2); CARBON DIOXIDE 21 mmol/L (22-30); CHLORIDE 111 mmol/L (98-107); GLUCOSE 249 mg/dL (75-110); POTASSIUM 4.4 mmol/L (3.6-5.0)
[2019-01-22] MEDS ORDERED: FUROSEMIDE INJ/PF 20 MG/2 ML SDV IV ONE (04:00)
--- NOTE | 2019-01-22 04:17 | PDOC H&P ---
History of Present Illness Admission Date/PCP: 01/21/19 20:20 LUIS HEATON MD Patient complains of: Confusion History of Present Illness: KUMAR DAVALOS is a 73 year old female with a past medical history of atrial fibrillation status post permanent pacemaker defibrillator, depression, migraine, neuropathy, hypertension, GERD and remote right sided breast cancer. She presents with 8 hours of confusion which was preceded by several excessive stressors. She is accompanied by her daughter who provides history that she is undergoing transition to assisted living, sale of her house and estate sale. She is moderately distressed in a hypomanic state, flight of ideas and perseverates. She denies recent change in medications which were filled 1 week ago. She denies pain, palpitations, excessive heat or cold intolerance but admits constipation and dyspepsia for which she is taking several [id number] medications. In the emergency room she is found to have an unremarkable work-up with exception to a calcium of 11.3 and is referred to the hospitalist for admission. Past Medical History Cardiac Medical History: Reports: Coronary Artery Disease Denies: Myocardial Infarction, Hypertension Pulmonary Medical History: Reports: Bronchitis, Pneumonia - WALKING Denies: Asthma, Chronic Obstructive Pulmonary Disease (COPD) Neurological Medical History: Denies: Seizures GI Medical History: Reports: Hiatal Hernia Denies: Hepatitis Musculoskeltal Medical History: Denies: Arthritis Psychiatric Medical History: Reports: Depression Denies: Alcohol Dependency, Dementia Hematology: Denies: Anemia, Sickle Cell Disease Past Surgical History Past Surgical History: Reports: Hysterectomy, Mastectomy - right, Pacemaker Denies: Amputation Social History Information Source: Patient, Relative, [facility] Records Lives with: Alone Smoking Status: Never Smoker Electronic Cigarette use?: No Frequency of Alcohol Use: None Hx Recreational Drug Use: No Drugs: None Hx Prescription Drug Abuse: No - Advance Directive Resuscitation Status: Full Code Family History Family History: None Parental Family History Reviewed: Yes Children Family History Reviewed: Yes Sibling(s) Family History Reviewed.: Yes Medication/Allergy Home Medications: Atorvastatin Calcium [Lipitor 80 Mg Tablet] 80 mg PO QHS 04/23/12 Esomeprazole Magnesium [Nexium] 40 mg PO HSP PRN 04/23/12 Montelukast Sodium [Singulair 10 mg Tablet] 10 mg PO QHS 04/23/12 Ranitidine HCl [Zantac 300 mg Tablet] 300 mg PO DAILYP PRN 04/23/12 Spironolactone [Aldactone 25 Mg Tablet] 50 mg PO DAILY 04/23/12 Topiramate [Topamax 100 Mg Tablet] 100 mg PO Q12 04/23/12 Venlafaxine HCl [Effexor Xr] 150 mg PO DAILY 04/23/12 Fluticasone Propionate [Flonase Nasal [place] 50 Mcg/[place] 16 gm] 1 spray NASL Q12 02/15/16 Metoprolol Succinate 200 mg PO DAILY 02/15/16 Sacubitril/Valsartan [Entresto 24 mg-26 mg Tablet] 1 each PO BID 02/15/16 Gabapentin [Neurontin 100 mg Capsule] 100 mg PO Q8 04/16/18 Celecoxib [Celebrex 200 mg Capsule] 200 mg PO DAILY 01/21/19 Famotidine 40 mg PO DAILYP PRN 01/21/19 Linaclotide [Linzess] 72 mcg PO DAILY 01/21/19 Metformin HCl [Metformin HCl ER] 500 mg PO BID 01/21/19 Metronidazole [Metrogel 0.75% Vaginal Gel] 1 applic PV ASDIR PRN 01/21/19 Rivaroxaban [Xarelto] 10 mg PO DAILY 01/21/19 Allergies/Adverse Reactions: sumatriptan Adverse Reaction (Severe, Verified 01/21/19 16:35) VERY LOW BP tizanidine [From Zanaflex] Adverse Reaction (Intermediate, Verified 01/21/19 16:35) LOW BP oxycodone HCl [From Percocet] Adverse Reaction (Verified 01/21/19 16:35) Nausea silk tape Adverse Reaction (Intermediate, Uncoded 01/21/19 16:35) Blisters surgical glue Adverse Reaction (Mild, Uncoded 01/21/19 16:35) rash, itching Review of Systems ROS unobtainable: Due to mental status Physical Exam Vital Signs: Temp Pulse Resp BP Pulse Ox 97.6 F 94 21 H 122/62 100 01/22/19 00:05 01/22/19 02:00 01/22/19 00:05 01/22/19 00:05 01/22/19 00:05 Intake & Output 01/20/19 01/21/19 01/22/19 11:59 11:59 11:59 Intake Total 1050 Output Total 900 Balance 150 Weight 71 kg General appearance: PRESENT: cooperative, mild distress, well-developed, well- nourished. ABSENT: disheveled Head exam: PRESENT: atraumatic, normocephalic Eye exam: PRESENT: conjunctiva pink, EOMI, PERRLA. ABSENT: scleral icterus Ear exam: PRESENT: normal external ear exam Mouth exam: PRESENT: moist, tongue midline Neck exam: ABSENT: carotid bruit, JVD, lymphadenopathy, thyromegaly Respiratory exam: PRESENT: clear to auscultation [place]. ABSENT: rales, rhonchi, wheezes Cardiovascular exam: PRESENT: RRR. ABSENT: diastolic murmur, rubs, systolic murmur Pulses: PRESENT: normal dorsalis pedis pul Vascular exam: PRESENT: normal capillary refill GI/Abdominal exam: PRESENT: normal bowel sounds, soft. ABSENT: distended, guarding, mass, organolmegaly, rebound, tenderness Rectal exam: PRESENT: deferred Extremities exam: PRESENT: full ROM. ABSENT: calf tenderness, clubbing, pedal edema Neurological exam: PRESENT: alert, altered, awake, oriented to person, oriented to place, CN II-XII grossly intact Psychiatric exam: PRESENT: agitated, anxious, manic, unusual affect. ABSENT: appropriate affect Focused psych exam: PRESENT: restlessness Skin exam: PRESENT: dry, intact, warm. ABSENT: cyanosis, rash Results Laboratory Results: 01/22/19 03:29 01/21/19 01/21/19 01/21/19 16:53 16:53 16:53 WBC 7.1 RBC 4.50 Hgb 14.4 Hct 42.4 MCV 94 MCH 32.1 MCHC 34.0 RDW 15.2 H Plt Count 201 Seg Neutrophils % 77.0 Sodium 140.4 Potassium 4.3 Chloride 105 Carbon Dioxide 25 Anion Gap 10 BUN 19 Creatinine 0.92 Est GFR ( Amer) > 60 Glucose 203 H Calcium 11.3 H Total Bilirubin 0.5 AST 21 Alkaline Phosphatase 52 Total Protein 6.5 Albumin 4.0 TSH 2.63 Urine Color Urine Appearance Urine pH Ur Specific [place] Urine Protein Urine Glucose (UA) Urine Ketones Urine Blood Urine Nitrite Ur Leukocyte Esterase Urine WBC (Auto) Urine RBC (Auto) 01/21/19 01/22/19 17:55 03:29 WBC 7.0 RBC 4.22 Hgb 13.4 Hct 40.0 MCV 95 MCH 31.9 MCHC 33.6 RDW 14.9 H Plt Count 188 Seg Neutrophils % 72.3 Sodium Potassium Chloride Carbon Dioxide Anion Gap BUN Creatinine Est GFR ( Amer) Glucose Calcium Total Bilirubin AST Alkaline Phosphatase Total Protein Albumin TSH Urine Color YELLOW Urine Appearance SLIGHTLY-CLOUDY Urine pH 7.0 Ur Specific [place] 1.005 Urine Protein NEGATIVE Urine Glucose (UA) NEGATIVE Urine Ketones NEGATIVE Urine Blood SMALL H Urine Nitrite POSITIVE H Ur Leukocyte Esterase SMALL H Urine WBC (Auto) 9 Urine RBC (Auto) 1 01/21/19 16:53 Troponin I < 0.012 Impressions: Chest X-Ray 01/21/19 00:00 IMPRESSION: Hiatal hernia. No acute cardiopulmonary finding. Head CT 01/21/19 00:00 IMPRESSION: NORMAL BRAIN CT WITHOUT CONTRAST. EVIDENCE OF ACUTE STROKE: NO. Assessment and Plan - Diagnosis (1) Encephalopathy acute Is this a current diagnosis for this admission?: Yes Plan: Most likely secondary to hypercalcemia, follow-up TSH, urine drug screen, continue Effexor, trial Zyprexa as needed (2) Hypercalcemia Is this a current diagnosis for this admission?: Yes Plan: Patient provides history of abdominal pain, headache, excessive [id number] acid suppressant medication. Likely iatrogenic hypercalcemia. Follow-up PTH, PTH related TSH, urine calcium. Trial IV fluid bolus, IV Lasix, Zometa PRN, fo llow-up chemistry. Of note chemistry obtained prior to IV Lasix administration. - Time Time Spent with patient: 25-34 minutes - Inpatient Certification Medical Necessity: Need Close Monitoring Due to Risk of Patient Decompensation
[2019-01-22] MEDS: HEPARIN SOD (PORCINE) 5,000 UNIT/ML 1 ML VIAL SUBCUT SCH ×3 (05:03→21:10)
[2019-01-22] MEDS: INSULIN LISPRO 100 UNIT/ML 3 ML VIAL SUBCUT SCH ×3 (08:31→17:10)
[2019-01-22] MEDS: METFORMIN HCL 500 MG TABLET PO SCH ×2 (09:45→17:05)
[2019-01-22] MEDS: ACETAMINOPHEN 325 MG TABLET PO PRN (09:46)
[2019-01-22] MEDS ORDERED: VENLAFAXINE HCL 75 MG CAP.SR.24H PO SCH (10:00)
[2019-01-22] MEDS ORDERED: PSYLLIUM SEED-SF 5.85 GM PACKET PO SCH (10:00)
[2019-01-22] MEDS ORDERED: METOPROLOL SUCCINATE 50 MG TAB.SR.24H PO ONE (10:19)
--- NOTE | 2019-01-22 10:41 | PDOC PROGRESS REPORT ---
Subjective Progress Note for:: 01/22/19 Subjective:: Patient seen in follow-up regarding confusion. Had a detailed conversation with patient, her son and her daughter at bedside. Per their story, patient has been experiencing high volumes of stress lately moving into new apartment and making multiple long drives in the last couple of days. Patient experienced an episode of altered mental status yesterday which she does not recollect. This is unusual for patient and has not had any severe episodes of confusion before even though she does get on edge very easily according to her children. I am told the patient does not have any history of psychosis though she takes venlafaxine for which the diagnosis is uncertain [depression versus anxiety]. I am told the patient's breast cancer went into remission in the and she has been following up with her doctors since then. Patient does have a BiVCD according to her which is MRI incompatible according to the patient. Patient admits to poor hydration and chronically elevated calcium levels as well as recent sleep deprivation due to the multiple things she has had to follow-up with. Patient denies noticing any dysuria, urinary frequency or urgency but states that she is uncertain and gets anxious when talking. Reason For Visit: DELIRIUM, HYPERCALCEMIA Physical Exam Vital Signs: Temp Pulse Resp BP Pulse Ox 97.6 F 83 18 168/81 H 95 01/22/19 08:54 01/22/19 08:54 01/22/19 08:54 01/22/19 08:54 01/22/19 08:54 Intake & Output 01/21/19 01/22/19 01/23/19 06:59 06:59 06:59 Intake Total 1050 Output Total 2000 Balance -950 Weight 76 kg General appearance: PRESENT: no acute distress, cooperative. ABSENT: disheveled, mild distress Head exam: PRESENT: atraumatic, normocephalic Eye exam: PRESENT: EOMI. ABSENT: scleral icterus Mouth exam: PRESENT: moist Neck exam: ABSENT: JVD Cardiovascular exam: PRESENT: RRR, +S1, +S2. ABSENT: irregular rhythm Vascular exam: ABSENT: pallor GI/Abdominal exam: PRESENT: normal bowel sounds, soft. ABSENT: ascites, distended, firm, guarding, tenderness Rectal exam: PRESENT: deferred Extremities exam: ABSENT: calf tenderness Musculoskeletal exam: PRESENT: ambulatory Neurological exam: PRESENT: alert, awake, oriented to person, oriented to place, oriented to time, oriented to situation, CN II-XII grossly intact. ABSENT: altered, motor sensory deficit Psychiatric exam: PRESENT: anxious, other - Seems very anxious when talking and occasionally tears up thinking of all the things she has to do. ABSENT: flat affect, homicidal ideation, suicidal ideation Focused psych exam: ABSENT: catatonic, delusional, flight of ideas, internal stimuli, paranoid, psychomotor agitation Results Laboratory Results: 01/22/19 03:29 01/22/19 03:29 01/21/19 01/21/19 01/21/19 16:53 16:53 16:53 WBC 7.1 RBC 4.50 Hgb 14.4 Hct 42.4 MCV 94 MCH 32.1 MCHC 34.0 RDW 15.2 H Plt Count 201 Seg Neutrophils % 77.0 Sodium 140.4 Potassium 4.3 Chloride 105 Carbon Dioxide 25 Anion Gap 10 BUN 19 Creatinine 0.92 Est GFR ( Amer) > 60 Glucose 203 H Calcium 11.3 H Magnesium Total Bilirubin 0.5 AST 21 Alkaline Phosphatase 52 Total Protein 6.5 Albumin 4.0 TSH 2.63 PTH Intact Urine Color Urine Appearance Urine pH Ur Specific [place] Urine Protein Urine Glucose (UA) Urine Ketones Urine Blood Urine Nitrite Ur Leukocyte Esterase Urine WBC (Auto) Urine RBC (Auto) 01/21/19 01/22/19 01/22/19 17:55 03:29 03:29 WBC 7.0 RBC 4.22 Hgb 13.4 Hct 40.0 MCV 95 MCH 31.9 MCHC 33.6 RDW 14.9 H Plt Count 188 Seg Neutrophils % 72.3 Sodium 141.8 Potassium 4.4 Chloride 111 H Carbon Dioxide 21 L Anion Gap 10 BUN 14 Creatinine 0.64 Est GFR ( Amer) > 60 Glucose 249 H Calcium 10.9 H Magnesium 1.8 Total Bilirubin AST Alkaline Phosphatase Total Protein Albumin TSH PTH Intact Urine Color YELLOW Urine Appearance SLIGHTLY-CLOUDY Urine pH 7.0 Ur Specific [place] 1.005 Urine Protein NEGATIVE Urine Glucose (UA) NEGATIVE Urine Ketones NEGATIVE Urine Blood SMALL H Urine Nitrite POSITIVE H Ur Leukocyte Esterase SMALL H Urine WBC (Auto) 9 Urine RBC (Auto) 1 01/22/19 03:29 WBC RBC Hgb Hct MCV MCH MCHC RDW Plt Count Seg Neutrophils % Sodium Potassium Chloride Carbon Dioxide Anion Gap BUN Creatinine Est GFR ( Amer) Glucose Calcium Magnesium Total Bilirubin AST Alkaline Phosphatase Total Protein Albumin TSH PTH Intact 79.8 H Urine Color Urine Appearance Urine pH Ur Specific [place] Urine Protein Urine Glucose (UA) Urine Ketones Urine Blood Urine Nitrite Ur Leukocyte Esterase Urine WBC (Auto) Urine RBC (Auto) 01/21/19 16:53 Troponin I < 0.012 Impressions: Chest X-Ray 01/21/19 00:00 IMPRESSION: Hiatal hernia. No acute cardiopulmonary finding. Head CT 01/21/19 00:00 IMPRESSION: NORMAL BRAIN CT WITHOUT CONTRAST. EVIDENCE OF ACUTE STROKE: NO. Assessment and Plan - Diagnosis (1) Encephalopathy acute Is this a current diagnosis for this admission?: Yes Plan: Patient's episodes of mental status change seems to have resolved currently. I suspect contributing factors include delirium from sleep deprivation and recent stressors. Hypercalcemia may also play a role in patient's encephalopathy though this level of hypercalcemia is typically not high enough to cause thorough mental status changes. -CT head without contrast was negative. Not a candidate for MRI. -TSH within normal limits -Conservative approach to delirium as the main inciting factor. Patient counseled on the importance of sleep and to take things slow for now. Also counseled on the importance of following up with a psychologist or therapist to discuss stress coping mechanisms. (2) Hypercalcemia Is this a current diagnosis for this admission?: Yes Plan: Was informed by patient's son the patient has been taking a lot of antacids [id number] which may include calcium carbonate pills. Also informed the patient has been taking calcium pills for her osteoporosis. Patient states that her calcium has been high on prior blood work for the past several months if not years. -Have instructed patient to stop taking calcium supplements if her calcium has been high chronically -IV fluids on Lasix to improve hypercalcemia (3) Delirium Is this a current diagnosis for this admission?: Yes Plan: Likely brought upon by sleep deprivation and dehydration as well as recent stresses (4) Anxiety Is this a current diagnosis for this admission?: Yes Plan: Patient appears very anxious when talking We will resume venlafaxine and uptitrate for better control of anxiety I emphasized the patient and her family the significant importance of following up with a psychologist or psychiatrist or therapist outpatient for further management of anxiety (5) UTI (urinary tract infection) Qualifiers: Urinary tract infection type: acute cystitis Hematuria presence: without hematuria Qualified Code(s): N30.00 - Acute cystitis without hematuria Is this a current diagnosis for this admission?: Yes Plan: Though unclear if true UTI as patient is not certain of whether she has experienced urinary symptoms are not, in light of delirium, will opt to treat UTI. Will give Keflex for 3 days - Time Time Spent with patient: 25-34 minutes Medications reviewed and adjusted accordingly: Yes Anticipated discharge: Home Within: within 24 hours
[2019-01-22] MEDS: NORMAL SALINE 1000 ML 1,000 ML IV PRN ×2 (10:44→17:44)
[2019-01-22] MEDS: SACUBITRIL/VALSARTAN 24 MG/26 MG TABLET PO SCH ×2 (12:03→21:10)
[2019-01-22] MEDS ORDERED: ACETAMINOPHEN 325 MG TABLET PO PRN (12:39)
[2019-01-22] MEDS ORDERED: TOPIRAMATE 100 MG TABLET PO ONE (13:00)
[2019-01-22] MEDS: GABAPENTIN 100 MG CAPSULE PO SCH ×2 (13:19→21:11)
[2019-01-22] MEDS ORDERED: TRAMADOL HCL 50 MG TABLET PO PRN (14:09)
[2019-01-22] MEDS ORDERED: BISACODYL 10 MG SUPP.RECT PR ONE (14:40)
[2019-01-22] MEDS ORDERED: DOCUSATE SODIUM 100 MG CAPSULE PO ONE (16:00)
[2019-01-22] MEDS ORDERED: RIVAROXABAN 10 MG TABLET PO SCH (17:00)
[2019-01-22] MEDS: POLYETHYLENE GLYCOL 3350 POWDER 17 GM/1 PACKET PO SCH (17:07)
[2019-01-22] MEDS ORDERED: PSYLLIUM SEED-SF 5.85 GM PACKET PO ONE (18:00)
[2019-01-22] MEDS: FLUTICASONE NASAL SPRAY 50 MCG/SPRY 120 SPRAY/16 GM NASL SCH (21:10)
[2019-01-22] MEDS: TOPIRAMATE 100 MG TABLET PO SCH (21:11)
[2019-01-22] MEDS: CEPHALEXIN 500 MG CAPSULE PO SCH (21:11)
[2019-01-22] MEDS ORDERED: ATORVASTATIN CALCIUM 80 MG TABLET PO SCH (22:00)
[2019-01-22] MEDS ORDERED: MONTELUKAST SODIUM 10 MG TABLET PO SCH (22:00)
--- NOTE | 2019-01-22 23:50 | EKG REPORT ---
SEVERITY:- ABNORMAL ECG - ATRIAL-SENSED VENTRICULAR-PACED COMPLEXES LVH WITH IVCD, LAD AND SECONDARY REPOL ABNRM : Confirmed by: Micky Vega 22-Jan-2019 23:50:35
[2019-01-23] MEDS ORDERED: PANTOPRAZOLE SODIUM 40 MG TABLET.DR PO SCH (06:00)
[2019-01-23 06:17] LABS: ALKALINE PHOSPHATASE 50 U/L (38-126); ASPARTATE AMINO TRANSFERASE 19 U/L (14-36); BILIRUBIN,TOTAL 0.3 mg/dL (0.2-1.3); BLOOD UREA NITROGEN 9 mg/dL (7-20); CALCIUM 9.7 mg/dL (8.4-10.2); GLUCOSE 139 mg/dL (75-110); TOTAL PROTEIN 5.4 g/dL (6.3-8.2)
[2019-01-23 06:22] LABS: ANION GAP 5 (5-19); CARBON DIOXIDE 24 mmol/L (22-30); CHLORIDE 113 mmol/L (98-107)
[2019-01-23] MEDS: HEPARIN SOD (PORCINE) 5,000 UNIT/ML 1 ML VIAL SUBCUT SCH (06:25)
[2019-01-23] MEDS: GABAPENTIN 100 MG CAPSULE PO SCH (06:26)
[2019-01-23] MEDS: INSULIN LISPRO 100 UNIT/ML 3 ML VIAL SUBCUT SCH (08:51)
[2019-01-23] MEDS: NORMAL SALINE 1000 ML 1,000 ML IV PRN (08:58)
[2019-01-23] MEDS: METFORMIN HCL 500 MG TABLET PO SCH (09:07)
[2019-01-23] MEDS: FLUTICASONE NASAL SPRAY 50 MCG/SPRY 120 SPRAY/16 GM NASL SCH (09:08)
[2019-01-23] MEDS: SACUBITRIL/VALSARTAN 24 MG/26 MG TABLET PO SCH (09:08)
[2019-01-23] MEDS: TOPIRAMATE 100 MG TABLET PO SCH (09:08)
[2019-01-23] MEDS: POLYETHYLENE GLYCOL 3350 POWDER 17 GM/1 PACKET PO SCH (09:08)
[2019-01-23] MEDS: CEPHALEXIN 500 MG CAPSULE PO SCH (09:09)
[2019-01-23] MEDS ORDERED: MAGNESIUM OXIDE 400 MG TABLET PO SCH (10:00)
[2019-01-23] MEDS ORDERED: PSYLLIUM SEED-SF 5.85 GM PACKET PO SCH (10:00)
[2019-01-23] MEDS ORDERED: DOCUSATE SODIUM 100 MG CAPSULE PO SCH (10:00)
[2019-01-23] MEDS ORDERED: VENLAFAXINE HCL 75 MG CAP.SR.24H PO SCH (10:00)
[2019-01-23] MEDS ORDERED: VENLAFAXINE HCL 37.5 MG CAP.SR.24H PO SCH ×2 (10:00)
[2019-01-23] MEDS ORDERED: POLYETHYLENE GLYCOL 3350 POWDER 17 GM/1 PACKET PO SCH (10:00)
[2019-01-23] MEDS ORDERED: (PENDING PHARMACY ID) (Linaclotide [Linzess] 72 MCG) PO SCH (10:00)
[2019-01-23] MEDS ORDERED: SPIRONOLACTONE 25 MG TABLET PO SCH (10:00)
[2019-01-23] MEDS ORDERED: METOPROLOL SUCCINATE 50 MG TAB.SR.24H PO SCH (10:00)
--- NOTE | 2019-01-23 12:00 | PDOC DISCHARGE SUMMARY ---
Impression - Admit/DC Date/PCP Admission Date/Primary Care Provider: 01/21/19 20:20 LUIS HEATON MD Discharge Date: 01/23/19 - Discharge Diagnosis (1) Encephalopathy acute Is this a current diagnosis for this admission?: Yes (2) Hypercalcemia Is this a current diagnosis for this admission?: Yes (3) Delirium Is this a current diagnosis for this admission?: Yes (4) Anxiety Is this a current diagnosis for this admission?: Yes (5) UTI (urinary tract infection) Is this a current diagnosis for this admission?: Yes (6) Hyperparathyroidism Is this a current diagnosis for this admission?: Yes - Assessment Summary: Patient was admitted after an episode of confusion. The confusion was transient and did not recur during hospitalization. In the ER blood chemistry noted hypercalcemia of 11.3. Patient was given IV fluids and Lasix several doses. Was believed that patient's delirium and encephalopathy was likely secondary to recent sleep deprivation and dehydration. It is unlikely that calcium level on 11.3 could have caused such significant encephalopathy. Patient's hypercalcemia resolved. Of note patient informed that her calcium has been high for several months now and her former primary care doctor was simply monitoring. Patient's parathyroid hormone level came multi at 79.8. Vitamin D 25 level was normal. Is likely the patient's hypercalcemia is secondary to either primary hyperparathyroidism or familial hypocalciuric hypercalcemia. Patient has been urged to follow-up with an systems programmer outpatient for further evaluation including 24hr urine calcium collection which was unable to be done here as the lab said that it takes 2 to 3 days to result. Patient is also was also treated for urinary tract infection during her stay with appropriate antibiotics. The patient was also notably anxious and her venlafaxine was increased from 150 to 187.5 mg daily. Patient was encouraged to follow-up with a psychiatrist/psychologist for further management of anxiety and help with stress coping management. - Additional Information Resuscitation Status: Full Code Discharge Activity: Activity As Tolerated Referrals: LUIS HEATON MD [Primary Care Provider] - Prescriptions: Venlafaxine HCl ER [Effexor Xr 37.5 mg Cap.sr] 37.5 mg PO DAILY #30 cap.sr.24h Cephalexin Monohydrate [Keflex 500 mg Capsule] 500 mg PO Q12 #6 capsule Home Medications: Atorvastatin Calcium [Lipitor 80 mg Tablet] 80 mg PO QHS 02/05/13 Esomeprazole Magnesium [Nexium] 40 mg PO HSP PRN 04/23/12 Montelukast Sodium [Singulair 10 mg Tablet] 10 mg PO QHS 04/23/12 Spironolactone [Aldactone 25 mg Tablet] 50 mg PO DAILY 04/23/12 Topiramate [Topamax 100 mg Tablet] 100 mg PO Q12 04/23/12 Venlafaxine HCl [Effexor Xr] 150 mg PO DAILY 04/23/12 Fluticasone Propionate [Flonase Nasal [place] 50 Mcg/[place] 16 gm] 1 spray NASL Q12 02/15/16 Metoprolol Succinate 200 mg PO DAILY 02/15/16 Sacubitril/Valsartan [Entresto 24 mg-26 mg Tablet] 1 each PO BID 02/15/16 Gabapentin [Neurontin 100 mg Capsule] 100 mg PO DAILY 04/16/18 Celecoxib [Celebrex 200 mg Capsule] 200 mg PO DAILY 01/21/19 Famotidine 40 mg PO DAILYP PRN 01/21/19 Linaclotide [Linzess] 72 mcg PO DAILY 01/21/19 Metformin HCl [Metformin HCl ER] 1,000 mg PO QAM 01/21/19 Metronidazole [Metrogel 0.75% Vaginal Gel] 1 applic TOP QHS MDD FOR ROSACEA 01/21/19 Rivaroxaban [Xarelto] 10 mg PO DAILY 01/21/19 Aspirin [Ecotrin 81 mg EC Tablet] 81 mg PO DAILY 01/22/19 Docusate Sodium [Colace 100 mg Capsule] 100 mg PO DAILY 01/22/19 Glucosam/Chondr/Collagn/Hyalur [Glucosamine & Chondroitin Cap] 1 each PO DAILY 01/22/19 Ipratropium [place] 2 spray NAREB BIDP PRN 01/22/19 Magnesium Oxide [Mag-Ox 400 mg Tablet] 400 mg PO DAILY 01/22/19 [place]-3/Dha/Epa/Fish Oil [Fish Oil 1,000 mg Softgel] 1,000 mg PO DAILY 01/22/19 Polyethylene Glycol 3350 [Miralax Powder 17 gm/Packet] 1 packet PO DAILY 01/22/19 Cephalexin Monohydrate [Keflex 500 mg Capsule] 500 mg PO Q12 #6 capsule 01/23/19 Venlafaxine HCl ER [Effexor Xr 37.5 mg Cap.sr] 37.5 mg PO DAILY #30 cap.sr.24h 01/23/19 History of Present Illiness History of Present Illness: KUMAR DAVALOS is a 73 year old female with a past medical history of atrial fibrillation status post permanent pacemaker defibrillator, depression, migraine, neuropathy, hypertension, GERD and remote right sided breast cancer. She presents with 8 hours of confusion which was preceded by several excessive stressors. She is accompanied by her daughter who provides history that she is undergoing transition to assisted living, sale of her house and estate sale. She is moderately distressed in a hypomanic state, flight of ideas and perseverates. She denies recent change in medications which were filled 1 week ago. She denies pain, palpitations, excessive heat or cold intolerance but admits constipation and dyspepsia for which she is taking several wnbq-day-llvjqel medications. In the emergency room she is found to have an unremarkable work-up with exception to a calcium of 11.3 and is referred to the hospitalist for admission. Physical Exam Vital Signs: Temp Pulse Resp BP Pulse Ox 97.8 F 73 16 130/74 H 100 01/23/19 08:42 01/23/19 08:42 01/23/19 08:42 01/23/19 08:42 01/23/19 08:42 Intake & Output 01/22/19 01/23/19 01/24/19 06:59 06:59 06:59 Intake Total 1050 2310 Output Total 2000 2000 Balance -950 310 Weight 76 kg 76 kg General appearance: PRESENT: no acute distress, cooperative Eye exam: PRESENT: EOMI Mouth exam: PRESENT: moist Neck exam: ABSENT: tracheal deviation Cardiovascular exam: PRESENT: RRR, +S1, +S2. ABSENT: tachycardia Vascular exam: ABSENT: pallor GI/Abdominal exam: PRESENT: normal bowel sounds, soft. ABSENT: rebound, rigid, tenderness Rectal exam: PRESENT: deferred Gentrourinary exam: ABSENT: ecchymosis Extremities exam: ABSENT: calf tenderness Musculoskeletal exam: PRESENT: ambulatory Neurological exam: PRESENT: alert, awake, oriented to person, oriented to place, oriented to time, oriented to situation Psychiatric exam: PRESENT: anxious. ABSENT: agitated Results Laboratory Results: WBC 7.0 10^3/uL (4.0-10.5) 01/22/19 03:29 RBC 4.22 10^6/uL (3.72-5.28) 01/22/19 03:29 Hgb 13.4 g/dL (12.0-15.5) 01/22/19 03:29 Hct 40.0 % (36.0-47.0) 01/22/19 03:29 MCV 95 fl (80-97) 01/22/19 03:29 MCH 31.9 pg (27.0-33.4) 01/22/19 03:29 MCHC 33.6 g/dL (32.0-36.0) 01/22/19 03:29 RDW 14.9 % (11.5-14.0) H 01/22/19 03:29 Plt Count 188 10^3/uL (150-450) 01/22/19 03:29 Lymph % (Auto) 18.7 % (13-45) 01/22/19 03:29 [place] % (Auto) 8.0 % (3-13) 01/22/19 03:29 Eos % (Auto) 0.4 % (0-6) 01/22/19 03:29 Baso % (Auto) 0.6 % (0-2) 01/22/19 03:29 Absolute Neuts (auto) 5.0 10^3/uL (1.7-8.2) 01/22/19 03:29 Absolute Lymphs (auto) 1.3 10^3/uL (0.5-4.7) 01/22/19 03:29 Absolute Monos (auto) 0.6 10^3/uL (0.1-1.4) 01/22/19 03:29 Absolute Eos (auto) 0.0 10^3/uL (0.0-0.6) 01/22/19 03:29 Absolute Basos (auto) 0.0 10^3/uL (0.0-0.2) 01/22/19 03:29 Seg Neutrophils % 72.3 % (42-78) 01/22/19 03:29 Sodium 142.0 mmol/L (137-145) 01/23/19 05:35 Potassium 4.0 mmol/L (3.6-5.0) 01/23/19 05:35 Chloride 113 mmol/L (98-107) H 01/23/19 05:35 Carbon Dioxide 24 mmol/L (22-30) 01/23/19 05:35 Anion Gap 5 (5-19) 01/23/19 05:35 BUN 9 mg/dL (7-20) 01/23/19 05:35 Creatinine 0.60 mg/dL (0.52-1.25) 01/23/19 05:35 Est GFR ( Amer) > 60 (>60) 01/23/19 05:35 Est GFR (MDRD) Non-Af > 60 (>60) 01/23/19 05:35 Glucose 139 mg/dL (75-110) H 01/23/19 05:35 POC Glucose 131 mg/dL (70-110) H 01/23/19 08:03 Calcium 9.7 mg/dL (8.4-10.2) 01/23/19 05:35 Magnesium 1.8 mg/dL (1.6-2.3) 01/22/19 03:29 Total Bilirubin 0.3 mg/dL (0.2-1.3) 01/23/19 05:35 Direct Bilirubin 0.0 mg/dL (0.0-0.4) 01/23/19 05:35 Neonat Total Bilirubin Not Reportable 01/23/19 05:35 Neonat Direct Bilirubin Not Reportable 01/23/19 05:35 Neonat Indirect Bili Not Reportable 01/23/19 05:35 AST 19 U/L (14-36) 01/23/19 05:35 ALT 24 U/L (<35) 01/23/19 05:35 Alkaline Phosphatase 50 U/L (38-126) 01/23/19 05:35 Troponin I < 0.012 ng/mL 01/21/19 16:53 Total Protein 5.4 g/dL (6.3-8.2) L 01/23/19 05:35 Albumin 3.0 g/dL (3.5-5.0) L 01/23/19 05:35 Vitamin D 25-Hydroxy 39.0 ng/mL (14.7-68.3) 01/22/19 03:29 TSH 2.63 uIU/mL (0.47-4.68) 01/21/19 16:53 PTH Intact 79.8 pg/mL (10.0-65.0) H 01/22/19 03:29 Urine Color YELLOW 01/21/19 17:55 Urine Appearance SLIGHTLY-CLOUDY 01/21/19 17:55 Urine pH 7.0 (5.0-9.0) 01/21/19 17:55 Ur Specific [place] 1.005 01/21/19 17:55 Urine Protein NEGATIVE mg/dL (NEGATIVE) 01/21/19 17:55 Urine Glucose (UA) NEGATIVE mg/dL (NEGATIVE) 01/21/19 17:55 Urine Ketones NEGATIVE mg/dL (NEGATIVE) 01/21/19 17:55 Urine Blood SMALL (NEGATIVE) H 01/21/19 17:55 Urine Nitrite POSITIVE (NEGATIVE) H 01/21/19 17:55 Urine Bilirubin NEGATIVE (NEGATIVE) 01/21/19 17:55 Urine Urobilinogen NEGATIVE mg/dL (<2.0) 01/21/19 17:55 Ur Leukocyte Esterase SMALL (NEGATIVE) H 01/21/19 17:55 Urine WBC (Auto) 9 /HPF 01/21/19 17:55 Urine RBC (Auto) 1 /HPF 01/21/19 17:55 Urine Bacteria (Auto) 1+ /HPF 01/21/19 17:55 Squamous Epi Cells Auto <1 /HPF 01/21/19 17:55 Urine Mucus (Auto) RARE /LPF 01/21/19 17:55 Urine Ascorbic Acid NEGATIVE (NEGATIVE) 01/21/19 17:55 Urine Opiates Screen NEGATIVE 01/21/19 17:55 Urine Methadone Screen NEGATIVE 01/21/19 17:55 Ur Barbiturates Screen NEGATIVE 01/21/19 17:55 Ur Phencyclidine Scrn NEGATIVE 01/21/19 17:55 Ur Amphetamines Screen NEGATIVE 01/21/19 17:55 U Benzodiazepines Scrn NEGATIVE 01/21/19 17:55 Urine Cocaine Screen NEGATIVE 01/21/19 17:55 U Marijuana (THC) Screen NEGATIVE 01/21/19 17:55 01/21/19 16:53 Troponin I < 0.012 Impressions: Chest X-Ray 01/21/19 00:00 IMPRESSION: Hiatal hernia. No acute cardiopulmonary finding. Head CT 01/21/19 00:00 IMPRESSION: NORMAL BRAIN CT WITHOUT CONTRAST. EVIDENCE OF ACUTE STROKE: NO. Stroke Is this a Stroke Patient?: No Acute Heart Failure - Is this a Heart Failure Patient?: Yes Documentation of LVEF assessment?: No, Document reason - Was not the primary reason for patient's admission LVEF < 40%?: No- if no continue to question #3 - Suspect possibly brought patient's EF is unknown c) Discharged on ARNI?: Yes d) Discharged on evidence-based Beta greer(carvedilol, sustained release metoprolol succinate, or bisoprolol)?: Yes 3. Anticoagulant therapy for permanect/persistent/paraoxysmal Afib or Aflutter: Yes Follow-up Appointment scheduled within 7 days?: No, document reason - Patient has a home primary beater room supervisor who she prefers to follow up with regularly as already scheduled. Again this is not the reason for patient's admission. CHF is currently stable
[2019-01-23 12:21] VITALS: BP 121/77
[2019-01-23 13:37] LABS: CALCIUM RANDOM URINE 11.2 mg/dL (Not Estab.); CREATININE URINE 6.7 mg/dL (Not Estab.)
== END 2019-01-23 13:04 | disposition home or self-care (01) ==
LOC: ER 16:33 → EH 20:20 → INTOOBSV 20:20 → 3W 22:52
PROVIDERS: ADMIT Internal Medicine; ATTEND Internal Medicine
DX: G93.40 Encephalopathy, unspecified (principal); E83.52 Hypercalcemia; R41.0 Disorientation, unspecified; N30.00 Acute cystitis without hematuria; E21.3 Hyperparathyroidism, unspecified; K59.00 Constipation, unspecified; R10.13 Epigastric pain; K44.9 Diaphragmatic hernia without obstruction or gangrene; I25.10 Atherosclerotic heart disease of native coronary artery without angina pectoris; I10 Essential (primary) hypertension; M81.0 Age-related osteoporosis without current pathological fracture; Z73.3 Stress, not elsewhere classified; F41.9 Anxiety disorder, unspecified; G62.9 Polyneuropathy, unspecified; Z72.820 Sleep deprivation; F32.9 Major depressive disorder, single episode, unspecified; G43.909 Migraine, unspecified, not intractable, without status migrainosus; Z59.8 Other problems related to housing and economic circumstances; I48.91 Unspecified atrial fibrillation; Z85.3 Personal history of malignant neoplasm of breast; Z95.810 Presence of automatic (implantable) cardiac defibrillator; Z79.899 Other long term (current) drug therapy; Z90.11 Acquired absence of right breast and nipple; Z60.2 Problems related to living alone; Z79.02 Long term (current) use of antithrombotics/antiplatelets
CPT/HCPCS: 99285; 96360; 36415 ×3; 87086; 82962 ×3; 83735; 84443; 85025 ×2; 87088; 80048; 80053 ×2; 81001; 84484; 87186; 80307; 82652; 82397; 82306; 82340; 82570; 83970; 71045; 70450; 93005; 93010; G0378 ×2; A9270 ×29; J1644 ×2; J1940 ×2; J3490 ×2; J7030 ×2; J7120; J0696